=== PATIENT | male | born 1980 | race Caucasian/White ===

== ENCOUNTER 2016-11-23 13:49 | Emergency (ER) | payer SELFPAY ==
[~2016-11-23] VITALS: Ht 180.3 cm; Wt 99.8 kg
[~2016-11-23 13:49] MED LIST: NAPROSYN500 MG PO; NKHM; NORCO 325 MG-51 TAB PO
[2016-11-23] MEDS ORDERED: PREDNISONE10 MG PO (14:49)
[2016-11-23] MEDS ORDERED: CYCLOBENZAPRINE5 M3 PO (14:49)
== END 2016-11-23 15:02 | disposition home or self-care (01) ==
LOC: ED 13:49
DX: M75.91 Shoulder lesion, unspecified, right shoulder (principal); F17.200 Nicotine dependence, unspecified, uncomplicated

== ENCOUNTER 2018-06-30 14:20 | Emergency (ER) | payer SELFPAY ==
[~2018-06-30] VITALS: Ht 180.3 cm; Wt 104.3 kg
[~2018-06-30 14:20] MED LIST changes: +CYCLOBENZAPRINE5 M3 PO; +PREDNISONE10 MG PO
[2018-06-30] MEDS ORDERED: CEPHALEXIN500 M1 PO (15:10)
[2018-06-30] MEDS ORDERED: SEPTDS PO (15:10)
[2018-06-30] MEDS ORDERED: Motrin,Rufen800 MG PO (15:10)
== END 2018-06-30 15:16 | disposition home or self-care (01) ==
LOC: ED 14:20
DX: L02.11 Cutaneous abscess of neck (principal); Z79.899 Other long term (current) drug therapy

== ENCOUNTER → 2021-12-26 | Outpatient (CLI) | payer OTHER ==
[~2021-12-26] MED LIST changes: +CEPHALEXIN500 M1 PO; +Motrin,Rufen800 MG PO; +SEPTDS PO
== END | disposition home or self-care (01) ==
LOC: CARD 11:23
PROVIDERS: ATTEND Orthopaedic Surgery Sports Medicine
DX: R94.31 Abnormal electrocardiogram [ECG] [EKG] (principal); Z01.810 Encounter for preprocedural cardiovascular examination